=== PATIENT | male | born 1985 | race Two or more races ===

== ENCOUNTER 2020-03-26 15:06 | Outpatient (CLI) | payer OTHER | END 2020-03-26 15:16 | disposition home or self-care (01) | LOC: RAD 15:06 | PROVIDERS: ATTEND Chiropractor | DX: M54.5 Low back pain (principal); M99.01 Segmental and somatic dysfunction of cervical region; M99.02 Segmental and somatic dysfunction of thoracic region; M99.03 Segmental and somatic dysfunction of lumbar region; M54.2 Cervicalgia ==

== ENCOUNTER 2025-02-10 14:38 | Outpatient (CLI) | payer OTHER | END 2025-02-10 14:40 | disposition home or self-care (01) | LOC: TOM 14:38 | PROVIDERS: ATTEND Otolaryngology Otology & Neurotology | DX: J34.2 Deviated nasal septum (principal); J34.3 Hypertrophy of nasal turbinates ==